=== PATIENT | female | born 1965 | race Two or more races ===

== ENCOUNTER 2018-04-23 11:15 | Outpatient (CLI) | payer OTHER | END 2018-04-23 12:09 | disposition home or self-care (01) | LOC: RAD 501 11:15 | DX: M54.5 Low back pain (principal) ==

== ENCOUNTER 2018-05-12 10:31 | Outpatient (CLI) | payer OTHER | END 2018-05-12 10:42 | disposition home or self-care (01) | LOC: NUCLEAR 10:31 | DX: M81.0 Age-related osteoporosis without current pathological fracture (principal) ==